=== PATIENT | female | born 1970 | race Caucasian/White ===

== ENCOUNTER 2019-07-07 13:57 | Inpatient (IN) ==
[2019-07-07] MEDS ORDERED: Ondansetron 4 MG/2 ML VIAL IVP ONE (14:00)
[2019-07-07] MEDS ORDERED: Aspirin 81 MG TAB.CHEW PO ONE (14:00)
[2019-07-07] MEDS ORDERED: 0.9 % Sodium Chloride 500 ML IVC ONE (14:00)
[2019-07-07] MEDS ORDERED: GI Cocktail 40 ML EACH PO ONE (14:00)
[2019-07-07] MEDS ORDERED: Ipratropium/Albuterol Neb 3 ML IH ONE (14:16)
[2019-07-07] MEDS ORDERED: cefTRIAXone 2,000 MG in 0.9 % Sodium Chloride Mini Bag 100 ML IVPB ONE (14:27)
[2019-07-07] MEDS ORDERED: methylPREDNISolone 125 MG/2 ML VIAL IVP ONE (14:27)
[2019-07-07] MEDS ORDERED: Azithromycin 500 MG in 0.9 % Sodium Chloride 250 ML IVPB ONE (14:27)
[2019-07-07 14:29] LABS: Basophils % 0.5 %; Eosinophils % 0.4 %; Hematocrit 40.4 % (35.3-44.9); Hemoglobin 14.1 g/dL (11.5-15.4); Immature Granulocytes % 0.3 % (0-4); Lymphocytes # 1.5 K/mcL (0.6-4.6); Lymphocytes % 20.8 %; Mean Corpuscular HGB Conc 34.9 g/dL (31.6-35.5); Mean Corpuscular Hemoglobin 34.6 pg (28.0-33.3); Mean Platelet Volume 10.9 fL (9.4-12.4); Monocytes # 0.4 K/mcL (0.0-1.3); Neutrophils # 5.4 K/mcL (1.6-8.9); Platelet Count 137 K/mcL (140-400); Red Blood Count 4.08 M/mcL (3.82-4.97); Red Cell Distribution Width 12.8 % (11.5-14.5); White Blood Count 7.4 K/mcL (4.3-11.1)
[2019-07-07 14:34] LABS: INR 0.9; Prothrombin Time 10.7 Seconds (9.4-12.1)
[2019-07-07 14:44] LABS: BUN/Creatinine Ratio 16 (6-26); Blood Urea Nitrogen 19 mg/dL (6-20); Calcium 9.3 mg/dL (8.6-10.3); Carbon Dioxide 19 mEq/L (23-29); Chloride 107 mEq/L (98-107); Glucose 121 mg/dL (70-105); Osmolality,Calculated 284 (280-300); Potassium 4.1 mEq/L (3.5-5.1); Sodium 135 mEq/L (136-145); eGFR For African Americans 60 (> 60); eGFR For Non-African Americans 49 (> 60)
[2019-07-07 14:45] LABS: Albumin 4.3 g/dL (3.5-5.7); Albumin/Globulin Ratio 1.8 (1.1-2.2); Bilirubin,Direct 0.1 mg/dL (0.0-0.2); Bilirubin,Indirect 0.6 mg/dL (0.0-1.0); Bilirubin,Total 0.7 mg/dL (0.3-1.0); Globulin 2.4 g/dL (2.4-3.5); Total Protein 6.7 g/dL (6.4-8.9); Troponin I < 0.03 ng/mL (< 0.04)
[2019-07-07] MEDS ORDERED: *HR* Enoxaparin 100 MG/ML SYRINGE SQ STA (14:52)
[2019-07-07 15:40] LABS: ABG Base Excess -6 mEq/L (-2 to 3); ABG HCO3 20 mEq/L (21-27); ABG Oxygen Saturation 89 % (95-98); ABG PCO2 40 mmHg (35-45); ABG PH 7.31 pH Units (7.32-7.45); ABG PO2 61 mmHg (85-104); ABG TCO2 21 mEq/L (20-26)
[2019-07-07] MEDS ORDERED: *HR* HYDROcodone/Acet 5/325 mg TABLET PO ONE (15:56)
[2019-07-07] MEDS ORDERED: Naloxone 0.4 MG/ML INJ IVP PRN (17:12)
[2019-07-07] MEDS ORDERED: Ipratropium/Albuterol Neb 3 ML IH PRN (17:23)
[2019-07-07] MEDS ORDERED: Furosemide 20 MG/2 ML VIAL IVP ONE (17:27)
[2019-07-07] MEDS ORDERED: *HR* HYDROcodone/Acet 7.5/325 mg TABLET PO PRN (17:53)
[2019-07-07] MEDS ORDERED: MethylPREDNISolone 40 MG/ML VIAL IVP SCH (18:00)
[2019-07-07] MEDS ORDERED: Ranolazine 500 MG TAB.ER.12H PO SCH (18:00)
[2019-07-07 18:43] VITALS: BP 112/91
[2019-07-07] MEDS ORDERED: diazePAM 5 MG TABLET PO SCH (21:00)
[2019-07-07 23:58] LABS: Adenovirus Not Detected (Not Detect); Bordetella Pertussis Not Detected (Not Detect); Chlamydophila pneumoniae Not Detected (Not Detect); Coronavirus 229E Not Detected (Not Detect); Coronavirus HKU1 Not Detected (Not Detect); Coronavirus NL63 Not Detected (Not Detect); Coronavirus OC43 Not Detected (Not Detect); Human Metapneumovirus Not Detected (Not Detect); Human Rhinovirus/Enterovirus Not Detected (Not Detect); Influenza A Subtype 2009 H1 Not Detected (Not Detect); Influenza A Untypeable Not Detected (Not Detect); Influenza B Not Detected (Not Detect); Mycoplasma pneumoniae Not Detected (Not Detect); Parainfluenza Virus 1 Not Detected (Not Detect); Parainfluenza Virus 2 Not Detected (Not Detect); Parainfluenza Virus 3 Not Detected (Not Detect); Parainfluenza Virus 4 Not Detected (Not Detect); Respiratory Syncytial Virus Not Detected (Not Detect)
[2019-07-08] MEDS ORDERED: *HR* Enoxaparin 40 MG/0.4 ML SYRINGE SQ SCH (09:00)
[2019-07-08] MEDS ORDERED: Aspirin Enteric Coated 81 MG Tablet PO SCH (09:00)
[2019-07-08] MEDS ORDERED: cefTRIAXone 2,000 MG in Water for inj. (sterile) 20 ML IVPB SCH ×2 (14:00→15:00)
[2019-07-08] MEDS ORDERED: Azithromycin 500 MG in 0.9 % Sodium Chloride 250 ML IVPB SCH (15:00)
== END 2019-07-07 21:40 | disposition short-term general hospital (02) | DRG 291 ==
LOC: INPPIK 13:57 → EMEROOPIK 13:57 → INPPIK 16:55
PROVIDERS: ADMIT Family Medicine; ATTEND Family Medicine